=== PATIENT | male | born 1945 | race Two or more races ===

== ENCOUNTER 2024-11-14 15:23 | Inpatient (IN) | payer OTHER ==
[~2024-11-14] VITALS: Ht 152.4 cm; Wt 77.1 kg
[2024-11-14 15:47] LABS: BASO % 0.3 % (0.1-1.2); EOS # 0.12 (0.04-0.54); EOS % 1.7 % (0.7-7.0); LYMPH # 1.30 (1.18-3.74); LYMPH % 18.1 % (19.3-53.1); MEAN PLATELET VOLUME 9.40 fl (9.4-12.4); MONO # 0.50 (0.24-0.82); MONO % 6.9 % (4.7-12.5); NEUT # 5.25 (1.56-6.13); NEUT % 72.9 % (34.0-71.1); RED CELL DISTRIBUTION WIDTH 12.5 % (11.6-14.4)
[2024-11-14 16:23] LABS: ALT/SGPT 16.0 U/L (12-78); AST/SGOT 15.0 U/L (15-37); BILIRUBIN TOTAL 0.53 mg/dL (0.3-1.2); BUN CREA RATIO 13.0 (7.0-25.0); CREATININE SERUM 1.44 mg/dL (0.70-1.30); GFR 48.5; GLOBULINA 3.1 G/DL (2.4-3.5); GLUCOSE FASTING 169.0 mg/dL (65-100); OSMOLALITY SERUM 293.0 MOSM/KG (275-295)
--- NOTE | 2024-11-14 16:27 | NUR ---
SE RECIBE A PACIENTE MASCULINO EN AREA DE CRITICO, SE CONECTA A MONITOR CARDIACO Y OXIMETRIA CONTINUA. SE CANALIZA CON #20 EN LT ARM Y #18 EN RT ARM AMBOS PATENTES Y LIBRES DE EDEMA Y ERITEMA. SE FRANCESCA MUESTRAS DE LABORATORIO BAJO MEDIDAS ASEPTICAS. SE REALIZA EKG Y SE PRESENTA A DR. [place]. SE NOTIFICA ABS A TERAPIA RESPIRATORIA. PACIENTE SE MANTIEN EN CAMA A NIVEL DE PISO JUNTO CON BARRANDAS ELEVADAS.
[2024-11-14 16:33] LABS: URINE APPEARANCE Cloudy; URINE BILIRRUBIN Negative (NEGATIVE); URINE BLOOD Negative; URINE COLOR Yellow; URINE GLUCOSE Negative (NEGATIVE); URINE KETONE Trace (NEGATIVE); URINE LEUKOCYTE Negative; URINE NITRATE Negative; URINE UROBILINOGEN 1.0 E.U./dl
[2024-11-14 16:37] LABS: URINE BACTERIA 41.9 uL (0.0-1933); URINE CAST 7.77 uL (0.0-1.40); URINE EPITHELIAL CELLS 29.2 uL (0.0-38.8); URINE RBC 19.6 uL (0.0-20.8); URINE WBC 23.8 uL (0.0-23.2)
[2024-11-14 16:39] LABS: URINE PROTEIN 100 (NEGATIVE)
[2024-11-14 16:49] LABS: TYPE CELLS SQUAMOUS
[2024-11-14 17:04] LABS: ABG PH 7.438 (7.35-7.45); ABG PO2 74.8 mmHg (80-100); BICARBONATE 27.1 mmol/l (23-25)
--- NOTE | 2024-11-14 18:20 | NUR ---
SE MAI DE [facility] SANT[facility] B/P:170/100MMHG.
[2024-11-14] MEDS ORDERED: ENALAPRILAT DIHYDRATE 1.25 MG/ML VIAL IV ONE (19:00)
[2024-11-14 21:05] LABS: o2 21 %
[2024-11-14] MEDS ORDERED: ASPIRIN 81 MG TAB.CHEW PO SCH (21:13)
[2024-11-14] MEDS ORDERED: ATORVASTATIN CALCIUM 40 MG TABLET PO SCH (21:13)
[2024-11-14] MEDS ORDERED: 0.9 % SODIUM CHLORIDE 500 ML IV ONE (21:15)
[2024-11-14] MEDS ORDERED: hydrALAZINE HCL 20 MG VIAL IV PRN (21:15)
[2024-11-14] MEDS ORDERED: 0.9 % SODIUM CHLORIDE 1,000 ML IV SCH ×2 (21:15→21:30)
[2024-11-14] MEDS ORDERED: IPRATROPIUM BROMIDE 0.5 MG/2.5 ML AMPUL.NEB IH SCH (21:16)
[2024-11-14] MEDS ORDERED: LEVALBUTEROL HCL 1.25 MG/3 ML SOLUTION IH SCH (21:16)
[2024-11-14 22:11] VITALS: BP 140/93
[2024-11-14 23:50] VITALS: BP 120/90; O2SAT 100
[2024-11-15] VITALS (8 sets, daily range): BP systolic 130–210; BP diastolic 84–114; O2SAT 94–98
[2024-11-15 08:06] LABS: INR 1.08
[2024-11-15] MEDS ORDERED: GABAPENTIN 300 MG CAPSULE PO SCH (09:00)
[2024-11-15] MEDS ORDERED: ENOXAPARIN SODIUM 40 MG/0.4 ML SYRINGE SUBCUTANEO SCH (09:00)
[2024-11-15] MEDS ORDERED: FAMOTIDINE/PF 20 MG in 0.9 % SODIUM CHLORIDE 8 ML IV PUSH SCH (09:00)
[2024-11-15 16:09] LABS: COVID-19 AG NEGATIVE (NEGATIVE)
[2024-11-15] MEDS ORDERED: DOXAZOSIN MESYLATE 4 MG TABLET PO SCH (17:00)
[2024-11-15] MEDS ORDERED: hydrALAZINE HCL 20 MG VIAL IV PRN (21:00)
[2024-11-15] MEDS ORDERED: HALOPERIDOL LACTATE 5 MG/ML AMPUL IM PRN (22:30)
[2024-11-15] MEDS ORDERED: HALOPERIDOL LACTATE 5 MG/ML AMPUL IM NR (23:28)
[2024-11-16] VITALS (9 sets, daily range): BP systolic 151–163; BP diastolic 81–107; O2SAT 95–100
[2024-11-16] MEDS ORDERED: DIPHENHYDRAMINE HCL 50 MG in 0.9 % SODIUM CHLORIDE 50 ML IV SCH
[2024-11-16] MEDS ORDERED: LEVALBUTEROL HCL 1.25 MG/3 ML SOLUTION IH SCH (01:00)
[2024-11-16] MEDS ORDERED: IPRATROPIUM BROMIDE 0.5 MG/2.5 ML AMPUL.NEB IH SCH (01:00)
[2024-11-16 08:06] LABS: BASO % 0.1 % (0.1-1.2); EOS # 0.04 (0.04-0.54); EOS % 0.5 % (0.7-7.0); LYMPH # 0.53 (1.18-3.74); LYMPH % 6.6 % (19.3-53.1); MEAN PLATELET VOLUME 10.20 fl (9.4-12.4); MONO # 0.53 (0.24-0.82); MONO % 6.6 % (4.7-12.5); NEUT # 6.87 (1.56-6.13); NEUT % 86.1 % (34.0-71.1); RED CELL DISTRIBUTION WIDTH 12.4 % (11.6-14.4)
[2024-11-16 08:10] LABS: BUN CREA RATIO 12.0 (7.0-25.0); CREATININE SERUM 0.89 mg/dL (0.70-1.30); GFR 84.5; GLUCOSE FASTING 113.0 mg/dL (65-100); OSMOLALITY SERUM 291.0 MOSM/KG (275-295)
[2024-11-16] MEDS ORDERED: INSULIN LISPRO 1,000 UNIT/10 ML UNITS SUBCUTANEO PRN (11:00)
[2024-11-16] MEDS ORDERED: DEXTROSE 50 % IN WATER 0.5 G/ML VIAL IV PRN (11:00)
[2024-11-16] MEDS ORDERED: IRBESARTAN 300 MG TABLET PO NR (11:30)
[2024-11-16] MEDS ORDERED: DILTIAZEM HCL 180 MG CAP.SR.24H PO NR (11:30)
[2024-11-16] MEDS ORDERED: SERTRALINE HCL 50 MG TABLET PO SCH (17:00)
[2024-11-17] VITALS (9 sets, daily range): BP systolic 140–183; BP diastolic 77–93; O2SAT 93–100
[2024-11-17 06:19] LABS: BASO % 0.2 % (0.1-1.2); EOS # 0.10 (0.04-0.54); EOS % 1.8 % (0.7-7.0); LYMPH # 1.03 (1.18-3.74); LYMPH % 18.3 % (19.3-53.1); MEAN PLATELET VOLUME 10.20 fl (9.4-12.4); MONO # 0.81 (0.24-0.82); NEUT # 3.67 (1.56-6.13); NEUT % 64.9 % (34.0-71.1); RED CELL DISTRIBUTION WIDTH 12.8 % (11.6-14.4)
[2024-11-17 06:40] LABS: MONO % 14.4 % (4.7-12.5)
[2024-11-17 06:50] LABS: BUN CREA RATIO 10.0 (7.0-25.0); CREATININE SERUM 1.01 mg/dL (0.70-1.30); GFR 73.03; GLUCOSE FASTING 111.0 mg/dL (65-100); OSMOLALITY SERUM 287.0 MOSM/KG (275-295)
[2024-11-17] MEDS ORDERED: DILTIAZEM HCL 180 MG CAP.SR.24H PO SCH (09:00)
[2024-11-17] MEDS ORDERED: IRBESARTAN 300 MG TABLET PO SCH (09:00)
[2024-11-17] MEDS ORDERED: CEFTRIAXONE SODIUM 2,000 MG VIAL IV SCH ×2 (14:15→15:00)
[2024-11-17] MEDS ORDERED: CIPROFLOXACIN IN 5 % DEXTROSE 400 MG/200 ML PIGGYBAG IV SCH (17:00)
[2024-11-17] MEDS ORDERED: DOXAZOSIN MESYLATE 4 MG TABLET PO SCH (17:00)
[2024-11-17] MEDS ORDERED: HALOPERIDOL LACTATE 5 MG/ML AMPUL IM PRN (18:15)
[2024-11-18] VITALS (9 sets, daily range): BP systolic 132–160; BP diastolic 66–85; O2SAT 95–100
[2024-11-18] MEDS ORDERED: SODIUM CHLORIDE 0.45 % 1,000 ML IV SCH (09:00)
[2024-11-18] MEDS ORDERED: IPRATROPIUM BROMIDE 0.5 MG/2.5 ML AMPUL.NEB IH SCH (12:00)
[2024-11-18] MEDS ORDERED: LEVALBUTEROL HCL 1.25 MG/3 ML SOLUTION IH SCH (12:00)
[2024-11-18] MEDS ORDERED: POTASSIUM CHLORIDE IN WATER 100 ML IV NR (16:00)
[2024-11-18] MEDS ORDERED: AMPICILLIN SODIUM/SULBACTAM NA 3,000 MG VIAL IV SCH (18:00)
[2024-11-18] MEDS ORDERED: QUETIAPINE FUMARATE 25 MG TABLET PO SCH (21:00)
[2024-11-19] VITALS (9 sets, daily range): BP systolic 126–135; BP diastolic 65–73; O2SAT 93–98
[2024-11-19 06:23] LABS: BASO % 0.1 % (0.1-1.2); EOS # 0.00 (0.04-0.54); EOS % 0.0 % (0.7-7.0); LYMPH # 0.76 (1.18-3.74); LYMPH % 9.8 % (19.3-53.1); MEAN PLATELET VOLUME 10.10 fl (9.4-12.4); MONO # 1.34 (0.24-0.82); NEUT # 5.60 (1.56-6.13); NEUT % 72.5 % (34.0-71.1); RED CELL DISTRIBUTION WIDTH 12.6 % (11.6-14.4)
[2024-11-19 06:35] LABS: ALT/SGPT 11.0 U/L (12-78); AST/SGOT 8.0 U/L (15-37); BILIRUBIN TOTAL 0.8 mg/dL (0.3-1.2); BUN CREA RATIO 15.0 (7.0-25.0); CREATININE SERUM 1.1 mg/dL (0.70-1.30); GFR 66.18; GLOBULINA 2.8 G/DL (2.4-3.5); GLUCOSE FASTING 99.0 mg/dL (65-100); OSMOLALITY SERUM 282.0 MOSM/KG (275-295)
[2024-11-19 06:38] LABS: MONO % 17.3 % (4.7-12.5)
[2024-11-19 09:11] LABS: % FREE PSA 21.9 % (.)
[2024-11-19] MEDS ORDERED: POTASSIUM CHLORIDE IN WATER 100 ML IV SCH (17:00)
[2024-11-20] VITALS (10 sets, daily range): BP systolic 157–199; BP diastolic 75–102; O2SAT 90–901
[2024-11-20 08:51] LABS: URINE APPEARANCE Clear; URINE BILIRRUBIN Negative (NEGATIVE); URINE BLOOD Large; URINE COLOR Yellow; URINE GLUCOSE Negative (NEGATIVE); URINE KETONE 15 (NEGATIVE); URINE LEUKOCYTE Negative; URINE NITRATE Negative; URINE PROTEIN 30 (NEGATIVE); URINE UROBILINOGEN 1.0 E.U./dl
[2024-11-20 08:56] LABS: URINE BACTERIA 15.6 uL (0.0-1933); URINE EPITHELIAL CELLS 1.6 uL (0.0-38.8); URINE RBC 440.7 uL (0.0-20.8); URINE WBC 15.2 uL (0.0-23.2)
[2024-11-20] MEDS ORDERED: SPIRONOLACTONE 25 MG TABLET PO SCH (09:00)
[2024-11-20 09:39] LABS: URINE CAST 0.14 uL (0.0-1.40)
[2024-11-21] VITALS (11 sets, daily range): BP systolic 160–179; BP diastolic 80–89; O2SAT 95–98
[2024-11-21 07:02] LABS: BUN CREA RATIO 15.0 (7.0-25.0); CREATININE SERUM 0.89 mg/dL (0.70-1.30); GFR 84.5; GLUCOSE FASTING 79.0 mg/dL (65-100); OSMOLALITY SERUM 282.0 MOSM/KG (275-295)
[2024-11-21] MEDS ORDERED: LEVALBUTEROL HCL 1.25 MG/3 ML SOLUTION IH SCH (09:00)
[2024-11-21] MEDS ORDERED: IPRATROPIUM BROMIDE 0.5 MG/2.5 ML AMPUL.NEB IH SCH (09:00)
[2024-11-21] MEDS ORDERED: DOXAZOSIN MESYLATE 8 MG TABLET PO SCH (17:00)
[2024-11-22] VITALS (9 sets, daily range): BP systolic 147–160; BP diastolic 88–94; O2SAT 90–98
[2024-11-23] VITALS (8 sets, daily range): BP systolic 135–166; BP diastolic 64–98; O2SAT 92–99
[2024-11-24 02:34] VITALS: BP 169/76; O2SAT 100
[2024-11-24 05:12] VITALS: O2SAT 97
[2024-11-24 06:26] LABS: BASO % 0.2 % (0.1-1.2); EOS # 0.01 (0.04-0.54); EOS % 0.2 % (0.7-7.0); LYMPH # 0.93 (1.18-3.74); LYMPH % 14.6 % (19.3-53.1); MEAN PLATELET VOLUME 9.30 fl (9.4-12.4); MONO # 0.98 (0.24-0.82); NEUT # 4.44 (1.56-6.13); NEUT % 69.4 % (34.0-71.1); RED CELL DISTRIBUTION WIDTH 12.9 % (11.6-14.4)
[2024-11-24 06:31] LABS: MONO % 15.3 % (4.7-12.5)
[2024-11-24 07:10] LABS: ALT/SGPT 103.0 U/L (12-78); AST/SGOT 161.0 U/L (15-37); BILIRUBIN TOTAL 0.54 mg/dL (0.3-1.2); BUN CREA RATIO 24.0 (7.0-25.0); CREATININE SERUM 0.72 mg/dL (0.70-1.30); GFR 105.31; GLOBULINA 3.4 G/DL (2.4-3.5); GLUCOSE FASTING 105.0 mg/dL (65-100); OSMOLALITY SERUM 287.0 MOSM/KG (275-295)
[2024-11-24 08:30] VITALS: BP 192/77; O2SAT 94
[2024-11-24 17:16] VITALS: BP 180/80
[2024-11-25 03:09] VITALS: BP 160/67; O2SAT 100
[2024-11-25] MEDS ORDERED: DILTIAZEM HCL 240 MG CAP.SR.24H PO SCH (09:00)
[2024-11-25 09:35] VITALS: BP 150/88; O2SAT 94
[2024-11-25 17:29] VITALS: BP 126/76
== END 2024-11-25 19:33 | disposition home or self-care (01) | DRG 304 ==
LOC: ER 15:23 → EDBD 21:40 → MEDI 21:40
PROVIDERS: Emergency Medicine; General Practice; Internal Medicine; Internal Medicine Infectious Disease; ADMIT Specialist; ATTEND Specialist
PROC: BW28ZZZ Computerized Tomography (CT Scan) of Head (ICD-10-PCS; 2024-11-14)
PROC: BW38ZZZ Magnetic Resonance Imaging (MRI) of Head (ICD-10-PCS; 2024-11-14)
PROC: B24BZZZ Ultrasonography of Heart with Aorta (ICD-10-PCS; 2024-11-14)
PROC: B348ZZZ Ultrasonography of Bilateral Internal Carotid Arteries (ICD-10-PCS; 2024-11-14)
PROC: 4A12X4Z Monitoring of Cardiac Electrical Activity, External Approach (ICD-10-PCS; principal; 2024-11-15)
PROC: BW28ZZZ Computerized Tomography (CT Scan) of Head (ICD-10-PCS; 2024-11-17)
PROC: BW24ZZZ Computerized Tomography (CT Scan) of Chest and Abdomen (ICD-10-PCS; 2024-11-18)
PROC: BW40ZZZ Ultrasonography of Abdomen (ICD-10-PCS; 2024-11-24)
DX: I16.9 Hypertensive crisis, unspecified (principal); G93.41 Metabolic encephalopathy; J18.9 Pneumonia, unspecified organism; N17.9 Acute kidney failure, unspecified; F05 Delirium due to known physiological condition; N39.0 Urinary tract infection, site not specified; I50.20 Unspecified systolic (congestive) heart failure; R55 Syncope and collapse; J44.9 Chronic obstructive pulmonary disease, unspecified; F03.90 Unspecified dementia, unspecified severity, without behavioral disturbance, psychotic disturbance, mood disturbance, and anxiety; E11.9 Type 2 diabetes mellitus without complications; Z79.4 Long term (current) use of insulin; W19.XXXA Unspecified fall, initial encounter; Y93.9 Activity, unspecified; Y92.230 Patient room in hospital as the place of occurrence of the external cause; I11.0 Hypertensive heart disease with heart failure; B95.2 Enterococcus as the cause of diseases classified elsewhere
CPT/HCPCS: 70544